=== PATIENT | female | born 1955 | race Caucasian/White ===

== ENCOUNTER → 2021-06-26 16:20 | Outpatient (CLI) | payer MEDICARE, SELFPAY ==
--- NOTE | ~2021-06-26 | MM_ITS ---
EXAMINATION: MM screening haley BI w duncan HISTORY: Screening TECHNIQUE: Craniocaudal and mediolateral oblique 3-D tomosynthesis images were obtained and synthetic 2-D images were generated. CAD analysis was submitted and interpreted. COMPARISON: No prior mammogram is available for comparison at this institution. BREAST PARENCHYMAL COMPOSITION: There are scattered areas of fibroglandular density. FINDINGS: There is no evidence of suspicious mass, calcification, or architectural distortion to sugg est malignancy in either breast. There has been no suspicious interval change. IMPRESSION: 1. No mammographic evidence of malignancy. 2. Recommend routine screening mammography in one year. BI-RADS Category 1: Negative Reviewed, dictated and finalized at location A.
== END ==
PROVIDERS: PCP Nurse Practitioner Family; Visit Provider Nurse Practitioner Family
DX: Z12.31 Encounter for screening mammogram for malignant neoplasm of breast (principal)
CPT/HCPCS: 77063; 77067

== ENCOUNTER → 2022-10-31 10:04 | Outpatient (CLI) | payer MEDICARE, SELFPAY ==
--- NOTE | ~2022-10-31 | MM_ITS ---
EXAMINATION: MM screening haley BI w duncan HISTORY: Screening TECHNIQUE: Craniocaudal and mediolateral oblique 3-D tomosynthesis images were obtained and synthetic 2-D images were generated. CAD analysis was submitted and interpreted. COMPARISON: 06/26/2021 BREAST PARENCHYMAL COMPOSITION: There are scattered areas of fibroglandular density. FINDINGS: There is no evidence of suspicious mass, calcification, or architectural distortion to sugg est malignancy in either breast. There has been no suspicious interval change. IMPRESSION: 1. No mammographic evidence of malignancy. 2. Recommend routine screening mammography in one year. BI-RADS Category 1: Negative Reviewed, dictated and finalized at location A.
== END ==
DX: Z12.31 Encounter for screening mammogram for malignant neoplasm of breast (principal)
CPT/HCPCS: 77063; 77067

== ENCOUNTER → 2023-01-20 14:48 | Outpatient (CLI) | payer MEDICARE, SELFPAY ==
--- NOTE | ~2023-01-20 | DEXA_ITS ---
Bone Density Report Name: ANDREA ANDREWS Age: 67 Sex: Female Ethnicity: White Date of : 1955 Indication: postmenopausal; screening for osteoporosis; hysterectomy; Referring Provider: DIANE, XI Brannon Study: Bone densitometry was performed. Exam Date: January 20, 2023 Accession number: [id number] Bone Density: Region BMD T-score Z-score Classification AP Spine (L1-L4) 0.785 -2.4 -0.3 Osteopenia Femoral Neck (Left) 0.721 -1.2 0.6 Osteopenia Total Hip (Left) 0.864 -0.6 0.8 Normal Femoral Neck (Right) 0.681 -1.5 0.3 Osteopenia Total Hip (Right) 0.819 -1.0 0.5 Normal Total Hip Mean 0.842 -0.8 0.7 Normal World Health Organization criteria for BMD impression classify patients as: Normal (T-score at or above -1.0), Osteopenia (T-score between -1.0 and -2.5), or Osteoporosis (T-score at or below -2.5). 10-year Fracture Risk(1): Major Osteoporotic Fracture 9.0% Hip Fracture 1.4% Reported Risk Factors: [place] (), Neck BMD=0.681, BMI=21.4 (1) FRAX(R) Version 3.08. Fracture probability calculated for an untreated patient. Fracture probability may be lower if the patient has received treatment. Clinical Information Provided by Patient: Has used the following medications: Calcium Has the following medical conditions: Hysterectomy Patient maximum height was 66 Menopause Age: 26 No regular weight bearing exercise Drinks caffeinated beverages Onset of menses at age 8 Number of children 3 Impression: The patient has low bone mass, based on the Total Spine T-score. The patient has an estimated ten-year risk of hip fracture of 1.4% and an estimated ten-year risk of major fracture of 9%, based on the WHO FRAX algorithm. Discussion: BONE DENSITY IS LOW AT ONE OR MORE SKELETAL SITES. This patient's lowest T-score is low at one or more skeletal sites. It meets the World Health Organization's (WHO) criteria for ?low bone mass? (T-score between -1.0 and -2.5). The patient's 10-year risk of fracture as calculated by FRAX is less than the threshold where pharmacological therapy is recommended by the National Osteoporosis Foundation (NOF). However, all treatment decisions require clinical judgment and consideration of individual patient factors, including patient preferences, comorbidities, previous drug use, risk factors not captured in the FRAX model (e.g., frailty, falls, vitamin D deficiency, increased bone turnover, interval significant decline in bone density) and possible under or overestimation of fracture risk by FRAX. The patient should follow a healthful lifestyle (good nutrition with adequate calcium and vitamin D, and appropriate weight-bearing exercise). Follow-Up: Consider repeating this study in 2 to 3 years to reassess this patient's status, or sooner if there is some new clinica
== END ==
PROVIDERS: PCP Family Medicine Sports Medicine; Visit Provider Family Medicine Sports Medicine
DX: M81.0 Age-related osteoporosis without current pathological fracture (principal); M85.88 Other specified disorders of bone density and structure, other site; M85.852 Other specified disorders of bone density and structure, left thigh; M85.851 Other specified disorders of bone density and structure, right thigh
CPT/HCPCS: 77080

== ENCOUNTER 2023-12-22 13:28 | Outpatient (CLI) | payer MEDICARE, SELFPAY ==
--- NOTE | ~2023-12-22 | MM_ITS ---
EXAMINATION: MM screening haley BI w duncan HISTORY: Screening TECHNIQUE: Craniocaudal and mediolateral oblique 3-D tomosynthesis images were obtained and synthetic 2-D images were generated. CAD analysis was submitted and interpreted. COMPARISON: Comparison to multiple prior studies sequentially, with oldest reviewed study dated 09/2021. BREAST PARENCHYMAL COMPOSITION: Not dense: There are scattered areas of fibroglandular density. FINDINGS: There is developing asymmetry posterior to the nipple on the MLO view. The right breast is stable without evidence for malignancy. IMPRESSION: 1. Developing left breast asymmetry. 2. Additional mammographic views and possible breast ultrasound are recommended. BI-RADS Category 0: Incomplete: Needs additional imaging evaluation. Reviewed, dictated and finalized at location B. IMPRESSION: 1. Developing left breast asymmetry. 2. Additional mammographic views and possible breast ultrasound are recommended . BI-RADS Category 0: Incomplete: Needs additional imaging evaluation.
== END 2023-12-22 13:29 | disposition home or self-care (01) ==
LOC: MICIMG 13:28
PROVIDERS: PCP Family Medicine Sports Medicine; Visit Provider Family Medicine Sports Medicine
DX: Z12.31 Encounter for screening mammogram for malignant neoplasm of breast (principal); R92.8 Other abnormal and inconclusive findings on diagnostic imaging of breast
CPT/HCPCS: 77063; 77067

== ENCOUNTER 2024-01-17 08:21 | Outpatient (CLI) | payer MEDICARE, SELFPAY ==
--- NOTE | ~2024-01-17 | MM_ITS ---
EXAMINATION: MM diagnostic haley LT w duncan HISTORY: Left breast asymmetry TECHNIQUE: Additional 3-D tomosynthesis images of the left breast were performed and synthetic 2-D im ages were generated. CAD analysis was submitted and interpreted. COMPARISON: 12/22/2023 BREAST PARENCHYMAL COMPOSITION:Not Dense. There are scattered areas of fibroglandular density. FINDINGS: The asymmetry effaces with spot compression. No persistent mass lesion or distortion seen. No suspicious microcalcifications. IMPRESSION: No mammographic evidence for malignancy. BI-RADS Category 1: Negative Reviewed, dictated and finalized at location .
== END 2024-01-17 08:22 | disposition home or self-care (01) ==
PROVIDERS: PCP Nurse Practitioner Family; Visit Provider Nurse Practitioner Family
DX: R92.8 Other abnormal and inconclusive findings on diagnostic imaging of breast (principal)
CPT/HCPCS: 77061; 77065; G0279

== ENCOUNTER 2024-12-25 11:07 | Outpatient (CLI) | payer MEDICARE, SELFPAY ==
--- NOTE | ~2024-12-25 | MM_ITS ---
EXAMINATION: MM screening haley BI w duncan HISTORY: Screening TECHNIQUE: Craniocaudal and mediolateral oblique 3-D tomosynthesis images were obtained and synthetic 2-D images were generated. CAD analysis was submitted and interpreted. COMPARISON: Comparison to multiple prior studies sequentially, with oldest reviewed study dated , 06/26/2021 BREAST PARENCHYMAL COMPOSITION: There are scattered areas of fibroglandular density. FINDINGS: There is no evidence of suspicious mass, calcification, or architectural distortion to suggest malignancy in either breast. IMPRESSION: 1. No mammographic evidence of malignancy. 2. Recommend routine screening mammography in one year. BI-RADS Category 1: Negative Reviewed, dictated and finalized at location B.
== END 2024-12-25 11:08 | disposition home or self-care (01) ==
PROVIDERS: PCP Nurse Practitioner Family; Visit Provider Nurse Practitioner Family
DX: Z12.31 Encounter for screening mammogram for malignant neoplasm of breast (principal)
CPT/HCPCS: 77063; 77067

== ENCOUNTER 2025-03-19 07:56 | Outpatient (CLI) | payer MEDICARE, SELFPAY ==
--- NOTE | ~2025-03-19 | DEXA_ITS ---
Bone Density Report Name: ANDREA ANDREWS Age: 69 Sex: Female Ethnicity: White Date of : 1955 Indication: osteopenia; hysterectomy; Referring Provider: DONTE, KOBE Patterson Study: Bone densitometry was performed. Exam Date: March 19, 2025 Accession number: [id number] Bone Density: Region BMD T-score Z-score Classification AP Spine(L1-L4) 0.758 -2.6 -0.4 Osteoporosis Femoral Neck (Left) 0.683 -1.5 0.4 Osteopenia Total Hip (Left) 0.802 -1.1 0.5 Osteopenia Femoral Neck (Right) 0.668 -1.6 0.3 Osteopenia Total Hip (Right) 0.800 -1.2 0.4 Osteopenia Total Hip Mean 0.801 -1.2 0.5 Osteopenia World Health Organization criteria for BMD impression classify patients as: Normal (T-score at or above -1.0), Osteopenia (T-score between -1.0 and -2.5), or Osteoporosis (T-score at or below -2.5). 10-year Fracture Risk: FRAX not reported because: Some T-score for Spine Total or Hip Total or Femoral Neck at or below -2.5 Previous Exams: Region Exam Age BMD T-score BMD Change BMD Change Date g/cm2 vs Baseline vs Previous AP Spine (L1-L4) 03/19/2025 69 0.758 -2.6 -0.028 (-3.5%) -0.028 (-3.5%) 01/20/2023 67 0.785 -2.4 Total Hip(Left) 03/19/2025 69 0.802 -1.1 -0.062 (-7.1%) -0.062 (-7.1%) 01/20/2023 67 0.864 -0.6 Total Hip(Right) 03/19/2025 69 0.800 -1.2 -0.019 (-2.4%) -0.019 (-2.4%) 01/20/2023 67 0.819 -1.0 *Denotes significance at 95% confidence level, LSC for AP Spine = 0.022 g/cm2, LSC for Total Hip = 0.027 g/cm2 Clinical Information Provided by Patient: Has used the following medications: Fosamax (i.e. alendronate), Prolia (i.e. denosumab), Vitamin D, Calcium Has the following medical conditions: Hysterectomy Patient maximum height was 66.0 Menopause Age: 26 Drinks caffeinated beverages Onset of menses at age 8 Number of children 3 Impression: The patient has osteoporosis, based on the Total Spine T-score. The BMD for the AP Spine (L1-L4) decreased, changing by -3.5% since the last DXA exam. The BMD for the Total Hip(Left) decreased, changing by -7.1% since the last DXA exam. Discussion: INCREASED RISK OF FRACTURE. BONE DENSITY IS UNDESIRABLY LOW AT ONE OR MORE SKELETAL SITES, CONSISTENT WITH POSTMENOPAUSAL OSTEOPOROSIS. This patient's lowest T-score meets the World Health Organization's (WHO) criteria for osteoporosis at one or more sites (T-score -2.5 or below). In untreated patients, the risk of osteoporotic fracture increases approximately two-fold for each 1.0 SD decrease in T-score. Low bone density is not the only risk factor for fracture; also consider factors such as patient's age, frailty or poor health, risk of falling, risk of injury, previous osteoporotic fracture, family history of osteoporosis, cigarette smoking, low body weight, etc. Not everyone with low bone mineral density has osteoporosis; osteomalacia and other metabolic bone disorders should also be considered. Patients who have osteoporosis should be evaluated for specific diseases and conditions (secondary causes) that may cause or contribute to bone loss. The [place] [employer]ocrin[employer] (AACE) and National Osteoporosis Foundation (NOF) recommend pharmacologic intervention for all postmenopausal women whose T-score is in this range. The patient should follow a healthful lifestyle (good nutrition with adequate calcium and vitamin D, and appropriate weight-bearing exercise). Follow-Up: Consider a repeat BMD and Vertebral Fracture Assessment (VFA) exam in 2 years or sooner if medically necessary, to reassess this patient's status. Reported by: CHERI on 03/19/2025 8:52:00 AM. Reviewed, dictated and finalized at location A.
--- OUTSIDE RECORDS SUMMARY | 2025-03-19 08:09 | XMS_ITS | Encounter Summary ---
Author Organization [facility] Healthcare Address [address] [place] [address] Care Team Providers Care Laboratory Chemical Assistant Name Role Phone Shanita Alejandra NP Primary Care Provider [phone] Reason for Visit * Reason Onset Date Comments Medical Question/Miscellaneous 03/08/2025 Encounter Details Date Type Department Care Team (Late st Contact Info) Description 03/08/2025 Telephone [facility] Primary Care at [address] [address] Shanita Alejandra REGISTERED RESPIRATORY TECHNICIAN [address] [place] [address] Medical Question/Miscellaneous Social History Tobacco Use Types Packs/Day Years Used Date Smoking Tobacco: Never Smokeless Tobacco: Never AUDIT-C Answer Date Recorded Q1: How often do you have a drink containing alc ohol? 2-4 times a month 09/02/2021 Q2: How many drinks containi ng alcohol do you have on a typical day when you are drinking? 1 or 2 09/02/2021 Q3: How often do you have si x or more drinks on one occasion? 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 AC reviewed the referral and provided Amilcar with (Z13.820,Z78.0) codes. Does message need to be routed? No EACH WORKER documented in this encounter Plan of Treatment Not on file documented as of this encounter Visit Diagnoses Not on filedocumented in this encounter Care Teams Laboratory Chemical Assistant Relationship Specialty Start Date End Date Shanita Alejandra NP [address] [place] [address] PCP - General Family Medicine 04/24/24 documented as of this encounter
--- OUTSIDE RECORDS SUMMARY | 2025-03-19 08:09 | XMS_ITS | Encounter Summary ---
Author Organization [facility] Healthcare Address [address] [place] [address] Care Team Providers Care Procurement Professional Name Role Phone Shanita Alejandra NP Primary Care Provider Encounter Details Date Type Department Care Team (Late st Contact Info) Description 02/23/2025 Results Follow-Up [facility] Medical Group Orthopedic and Sports Medicine [facility] [place] [address] Caren Briggs PA [address] [place] [address] [address] MRI Knee Right WO Contrast Social History Tobacco Use Types Packs/Day Years [...] on file 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 Mullins for a consult- She is scheduled to follow-up with you 03/20/25, Is it okay for me to cancel this appointment? ATAL SPECIALIST documented in this encounter Plan of Treatment Not on file documented as of this encounter Visit Diagnoses Not on filedocumented in this encounter Care Teams Procurement Professional Relationship Specialty Start Date End Date Shanita Alejandra NP [address] [place] [address] PCP - General Family Medicine 04/24/24 documented as of this encounter
--- OUTSIDE RECORDS SUMMARY | 2025-03-19 08:10 | XMS_ITS | Patient Health Record ---
Author Organization [facility] Address [address] [place] [address] Care Team Providers Care Casing Material Weigher Name Role Phone Arjun HUDSON, Rory Primary Care Provider Unavailable Charles Loredo Unavailable [phone] Allergies Allergen (clinical drug ingredient) Drug/Non Drug Allergy documented on EMR Reaction Allergy Type Onset Date Status codeine Codeine Allergy Unknown Drug Allergy A ctive Reason For Referral No Information Medications Medication SIG (Take, Route, Frequency, Duration) Notes Start Date End Date Status Citalopram Hydrobromide 10 MG Tablet 1 tablet Orally Once a day Active Multivitamin *Pick strength-form from Medispan for eRX* Active Fish Oil 1000 MG Capsule 1 capsule Orally Twice a day Not-Taking Atorvastatin Calcium 40 MG Tablet 1 tablet Orally Once a day Active Reclast *Pick strength-form from Medispan for eRX* Active Tylenol *Pick strength-form from Medispan for eRX* Not-Taking Social History Social History Additional Details Category Social Info Options Details Migrated Social History Tobacco Use: (Tobacco Use/Smoking):Smoking Status:: nonsmoker ; Problems Problem Type SNOMED Code ICD Code Onset Dates Problem Status W/U Status Risk Notes Problem Spinal enthesopathy (93768428) Spinal enthesopathy, 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) Active confirmed Problem Cervicalgia (84934457) Cervicalgia (M54.2) Active confirmed Problem Cervical spondylosis with myelopathy (M47.12) Active confirmed Problem Internal impingement of left shoulder (7743470755676582 ) Internal impingement of left shoulder (M75.42) Active confirmed Problem Localized, primary osteoarthritis of the hand (580035234) Primary osteoarthritis of left hand (M19.042) Active confirmed Problem Tendonitis of left shoulder (4988962011609900 ) Left shoulder tendonitis (M75.82) Active confirmed Problem Acquired deformity of neck (50594760) 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) Active confirmed Plan Of Treatment No Information Insurance Providers Payer Name Payer Address Payer Phone Subscriber Number Group Number Insured Name Patient Relationship to Insured Coverage Start Date Coverage End Date [employer] PART B [address] [place] [address] [id number] Antoinette Lawrence Self - patient is the insured [facility] [address] [address] [place] [address] [id number] Antoinette Lawrence Self - patient is the insured Medical (General) History Medical History History ICD Code High blood pressure/High cholesterol Osteoporosis Surgical History Surgery Date(Month/Year) Bilateral froozen shoulder Torn labrum Hysterectomy 1980
--- OUTSIDE RECORDS SUMMARY | 2025-03-19 08:10 | XMS_ITS | Clinical Summary ---
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 Gender Identity Not on file Sexual Orientation Not on file Last Filed Vital Signs Vital Sign Reading Time Taken Comments Blood Pressure 100/80 11/06/2009 5:55 PM CDT Pulse 60 11/06/2009 5:55 PM CDT Temperature - - Respiratory Rate - - Oxygen Saturation - - Inhaled Oxygen Concentration - - Weight 62.4 kg (137 lb 8 oz) 11/06/2009 5:55 PM CDT Height - - Body Mass Index - - Plan of Treatment Health Maintenance Due Date Last Done Comments Colorectal Cancer Screening Colonoscopy (10 Years) 1955 Hepatitis C 1971 DTaP, Tdap and Td Vaccines ( 1 - Tdap) 1972 Mammogram Screening 1993 Pneumococcal Vaccine: 50+ Ye ars (1 of 1 - PCV) 2003 Zoster Vaccines (1 of 2) 2003 Dexa Scan (General) 2018 COVID-19 Vaccine ( - 2024-2 6 season) 2024 Influenza Adult (#1) 2024 RSV Immunization or 60+ Years (1 - 1-dose 75+ series) 2028 Hepatitis A Vaccines Aged Out No long er eligible based on patient's age to complete this topic Meningococcal B Vaccine Aged Out No l onger eligible based on patient's age to complete this topic Meningococcal Vaccine Aged Out No jann prakash eligible based on patient's age to complete this topic RSV Immunizations Under 20 Months Aged Out No longer eligible based on patient's age to complete this topic
--- OUTSIDE RECORDS SUMMARY | 2025-03-19 08:10 | XMS_ITS | Clinical Summary ---
[facility] Address [address] [place] [address] Phone Care Team Providers Care Grief Counselor Name Role Phone Charles Hicks MD Primary Care Provider Allergies Active Allergy Reactions Criticality Noted Date Comments Codeine Nausea and Vomiting Low 05/11/2011 Ezetimibe Weakness Low 03/08/2013 Medications acyclovir (ZOVIRAX) 200 mg Oral capsule Take 200 mg by mouth 5 times daily. Active ascorbic acid (VITAMIN C) 500 mg Oral tablet Take 500 mg by mouth daily. Active Fish Oil-DHA-EPA (FISH OIL) 1,200-144-216 mg Oral Cap Take by mouth. Active MULTIVIT WITH CALCIUM,IRON,DE N (ONE-A-DAY WOMENS FORMULA ORAL) Take by mouth. Active CALCIUM CARB/VIT D3/MINERALS (CALCIUM CARBONATE-VIT D3-MIN) 1,200 mgcalcium -1,000 unit Oral Chew Take by mouth. Active ALPRAZolam (XANAX) 0.5 mg Oral tablet Take 0.5 mg by mouth nightly as needed. Active ibuprofen (MOTRIN) 800 mg Oral tablet Take 1 Tab by mouth every 6 hours as needed for Pain, Mild. 30 Tab 0 12/04/2012 Active cyclobenzaprine (FLEXERIL) 5 mg Oral Tab Take 1 Tab by mouth 3 times daily as needed for Pain. 20 Tab 0 12/04/2012 Active HYDROcodone-edie taminophen (VICODIN) 5-500 mg Oral tablet Take 1 Tab by mouth every 4 hours as needed for Pain, Moderate. 10 Tab 0 12/04/2012 Active pravastatin (PRAVACHOL) 20 mg tablet Take 1 Tab by mouth daily at bedtime. 90 Tab 3 06/14/2013 Active citalopram (CELEXA) 10 mg tablet Take 1 Tab by mouth daily. 90 Tab 3 08/21/2013 Active hydrochlorothia zide (MICROZIDE) 12.5 mg capsule Take 1 Cap by mouth daily. 90 Cap 1 11/15/2013 Active Active Problems Problem Noted Date Diagnosed Date Osteoporosis 06/03/2011 Immunizations Immunization Administration Dates Next Due (ADACEL/BOOSTRIX)(10 YR UP) TDAP VACCINE, 0.5ML, IM 07/12/2012 Influenza Seasonal Unspecified Formulation IM Family History Medical History Relation Name Comments Cancer Father Diabetes Father Heart Disease Father pacer Heart Disease Maternal Grandmother High Cholesterol Mother Hypertension Mother Breast Cancer Paternal Aunt Colon Cancer Neg Hx Ovarian Cancer Neg Hx Stroke Neg Hx Relation Name Status Comments Father Maternal Grandmother Mother Paternal Aunt Social History Tobacco Use Types Packs/Day Years Used Date Smoking Tobacco: Never Smokeless Tobacco: Never Alcohol Use Standard Drinks/Week Comments Yes 1.7 (1 standard drink = 0.6 oz p ure alcohol) rare Comments No Sex and Gender Information Value Date Recorded Sex Assigned at Not on file 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 Gender Identity Not on file Sexual Orientation Not on file Occupation Industry Job Start Date Job End Date Not on file Not on file Not on file Not on file Not on file Not on file Not on file Not on file Last Filed Vital Signs Vital Sign Reading Time Taken Comments Blood Pressure 90/64 12/05/2012 10:01 AM CDT Pulse 64 12/05/2012 10:01 AM CDT Temperature 35.4 C (95.7 F) 12/05/2012 10:01 AM CDT Respiratory Rate 18 12/05/2012 10:01 AM CDT Oxygen Saturation 100% 12/04/2012 9:39 AM CDT Inhaled Oxygen Concentration - - Weight 59 kg (130 lb) 12/05/2012 10:01 AM CDT Height 167.6 cm (5' 6) 12/05/2012 10:01 AM CDT Body Mass Index 20.98 12/05/2012 10:01 AM CDT Plan of Treatment Health Maintenance Due Date Last Done Comments COLORECTAL SCREENING 1998 Colorectal Cancer Screening 1998 FIT-DNA Q 3 years 1998 FIT/FOBT Q 1 year 1998 Flex Sig/CT Colonography Q 5 years 1998 PNEUMOCOCCAL VACCINE 50+ YEA RS (1 of 1 - PCV) 2003 ZOSTER VACCINE (1 of 2) 2003 BREAST CANCER SCREENING 07/20/2013 07/20/2012 OSTEOPOROSIS SCREENING 2018 08/24/2011 DTAP/TDAP/TD VACCINES (2 - T d or Tdap) 07/12/2022 07/12/2012 Preventative Visit- Commercial 03/22/2024 0 10/18/2012, 07/12/2012, 06/01/2011 INFLUENZA VACCINE (#1) 2024 01/23/2012 RSV VACCINE (60+ or ) (1 - 1-dose 75+ series) 2028 Procedures Procedure Name Priority Date/Time Associated Diagnosis Comments MAMMO SCREEN BILAT W OR WO CAD Routine 07/20/2012 2:21 PM CDT History of mammogram XR DEXA BONE DENSITY AXIAL 1 OR MORE SITES Routine 08/24/2011 10:25 AM CDT Osteoporosis from Last 3 Months or Most Recently Relevant to Health Maintenance Results * MAMMO DIGITAL SCREEN BILAT (07/20/2012 2:21 PM CDT) Anatomical Region Laterality Modality Breast Bilateral Mammography 07/20/2012 2:07 PM CDT Impressions 07/25/2012 8:39 AM CDT IMPRESSION: Negative screening mammogram Recommend routine followup OVERALL ASSESSMENT: BI-RADS category 1 - Negative Dictated from [facility] Narrative 07/25/2012 8:39 AM CDT BILATERAL SCREENING DIGITAL MAMMOGRAMS WITH COMPUTER ASSISTED DIAGNOSIS 07/20/12 HISTORY: Annual screening study. FINDINGS: Comparison films are not available. CAD was utilized. The breast parenchyma has scattered fibroglandular densities. No dominant masses, suspicious calcifications or areas of parenchymal asymmetry or distortion are identified. Procedure Note Yamileth Hinojosa MD - 07/25/2012 BILATERAL SCREENING DIGITAL MAMMOGRAMS WITH COMPUTER ASSISTED DIAGNOSIS 07/20/12 HISTORY: Annual screening study. FINDINGS: Comparison films are not available. CAD was utilized. The breast parenchyma has scattered fibroglandular densities. No dominant masses, suspicious calcifications or areas of parenchymal asymmetry or distortion are identified. IMPRESSION IMPRESSION: Negative screening mammogram Recommend routine followup OVERALL ASSESSMENT: BI-RADS category 1 - Negative Dictated from [facility] us Charles Hicks MD MAMMO ORDERABLES Final Result * XR DEXA BONE DENSITY AXIAL 1 OR MORE SITES (08/24/2011 10:25 AM CDT) Anatomical Region Laterality Modality Digital Radiogra phy 08/24/2011 10:2 1 AM CDT Narrative 08/24/2011 10:49 AM CDT XR DEXA BONE DENSITY AXIAL 1 OR MORE SITES HISTORY: 56 yo F with postmenopausal symptoms on calcium supplementation and with known bone mineral loss needing evaluation for osteoporosis. PROCEDURE: Using a [employer] iDXA dual energy x-ray absorptiometry system, the patient's bone mineral density was measured over the lumbar spine and femurs. Comparison was made to age and sex matched normal values. FINDINGS: Lumbar Spine (L1-L4) Bone Mineral Density = 1.007 gm/cm2 Compared to young adult (T-score), difference of -1.4 Standard Deviations. The patient's spine BMD is osteopenic when compared to that of a young adult. Left Femoral Neck Bone Mineral Density = 0.968 gm/cm2 Compared to young adult (T-score), difference of -0.1 Standard Deviations. The patient's left femoral neck BMD is normal when compared to that of a young adult. Right Femoral Neck Bone Mineral Density = 0.920 gm/cm2 Compared to young adult (T-score), difference of -0.5 Standard Deviations. The patient's right femoral neck BMD is normal when compared to that of a young adult. No prior DEXA studies are available for comparison. Procedure Note Oh Love DO - 08/24/2011 XR DEXA BONE DENSITY AXIAL 1 OR MORE SITES HISTORY: 56 yo F with postmenopausal symptoms on calcium supplementation and with known bone mineral loss needing evaluation for osteoporosis. PROCEDURE: Using a [employer] iDXA dual energy x-ray absorptiometry system, the patient's bone mineral density was measured over the lumbar spine and femurs. Comparison was made to age and sex matched normal values. FINDINGS: Lumbar Spine (L1-L4) Bone Mineral Density = 1.007 gm/cm2 Compared to young adult (T-score), difference of -1.4 Standard Deviations. The patient's spine BMD is osteopenic when compared to that of a young adult. Left Femoral Neck Bone Mineral Density = 0.968 gm/cm2 Compared to young adult (T-score), difference of -0.1 Standard Deviations. The patient's left femoral neck BMD is normal when compared to that of a young adult. Right Femoral Neck Bone Mineral Density = 0.920 gm/cm2 Compared to young adult (T-score), difference of -0.5 Standard Deviations. The patient's right femoral neck BMD is normal when compared to that of a young adult. No prior DEXA studies are available for comparison. Charles Hicks MD DIAGNOSTIC IMAGING ORDERABLES Final Result from Last 3 Months or Most Recently Relevant to Health Maintenance Insurance [facility] O Care Teams Grief Counselor Relationship Specialty Start Date End Date Charles Hicks MD PCP - General Internal Medicine 05/04/11
--- OUTSIDE RECORDS SUMMARY | 2025-03-19 08:10 | XMS_ITS | Patient Health Record ---
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 Name Role Phone Maurizio Judge Unavailable [phone] Maurizio Judge MD Unavailable Unavailable Allergies Allergen (clinical drug ingredient) Drug/Non Drug Allergy documented on EMR Reaction Allergy Type Onset Date Status codeine Codeine (uncoded) Unknown Allergy Ac tive Retinoid (substance) Retinol (uncoded) Unknown Allergy Active Reason For Referral No Information Medications Medication SIG (Take, Route, Fr equency, Duration) Notes Start Date End Date Status Vitamin D Active Multivitamin Active Citalopram Hydrobromide Active Calcium Active Prolia Active Atorvastatin Calcium Active Social History Tobacco Use: Social History Observation Description Date Details (start date - stop date) Never Smoker NA - NA Social History Alcohol Social Info Question Answer Notes Drugs Have you used drugs other than those for medical reasons in the past 12 months? No Alcohol Screen Did you have a drink containing alcohol in the past year? Yes How often did you have a drink containing alcohol in the past year? 2 to 4 times a month (2 points) How many drinks did you have on a typical day when you were drinking in the past year? 1 or 2 drinks (0 point) How often did you have 6 or more drinks on one occasion in the past year? Never (0 point) Points 2 Interpretation Negative Alcohol Use Frequency of alcohol use over the past year: 2-4 drinks per month Tobacco Use: Social Info Question Answer Notes Smoking Exclusion - Screenin g not Performed Reason: No reason specified Patient not counseled: Patient not eligible Smoking Are you a: never smoker Additional Findings: Tobacco Non-User Aggressive non-smoker Problems Problem Type SNOMED Code ICD Code Onset Dates Problem Status W/U Status Risk Notes Problem Facial aging (R23.8) Active confirmed Plan Of Treatment No Information Medical (General) History Medical History History ICD Code High cholesterol Healthy Surgical History Surgery Date(Month/Year) [place] teeth extraction Total hysterectomy 1980 Hospitalization History Reason Date(Month/Year) See above
--- OUTSIDE RECORDS SUMMARY | 2025-03-19 08:10 | XMS_ITS | Clinical Summary ---
Author Organization [facility] [place] Address [address] [place] [phone] Care Team Providers Care Real Estate Account Executive Name Role Phone Shanita Alejandra NP Primary Care Provider [phone] Allergies Active Allergy Reactions Criticality Noted Date Comments Codeine Nausea And Vomiting Low 05/11/2011 Ezetimibe Muscle pain Medium 03/08/2013 Retinol Rash Medium 05/22/2019 Medications Ca-D3-mag dz-sxka-wmy-maggie -bor 600 mg calcium- 20 mcg-50 mg tablet Take 600 mg by mouth daily Active multivitamin capsule Take 1 capsule by mouth daily Active vit D3-vit C-rhszmhgwg-jmfb [id number] tost-fuo-zy-mg tablet Take 50 mcg by mouth daily Active bimatoprost (LATISSE) 0.03 % ophthalmic solution APPLY 1 DROP TO UPPER EYELID MARGIN AT BEDTIME 09/01/2021 Active valACYclovir (VALTREX) 500 mg tablet TAKE TABLET BY MOUTH TWICE DAILY FOR 7 DAYS 11/18/2021 Active citalopram (CeleXA) 20 mg tabletIndication s:Anxiety Take 1 tablet (20 mg total) by mouth daily 90 tablet 1 09/28/2024 Active atorvastatin (LIPITOR) 40 mg tabletIndication s:High cholesterol Take 1 tablet (40 mg total) by mouth daily 90 tablet 3 12/05/2024 Active Hospital, Clinic, or Other Facility Administered Medication Ordered Dose Route Frequency Start Date End Date Status lidocaine (XYLOCAINE) 20 mg/mL (2 %) injection 3 mLIndications:Admi nistration of Local Anesthesia 3 mL One-Time Injection 02/27/2025 02/27/2025 Ended lidocaine (XYLOCAINE) 20 mg/mL (2 %) injection 3 mLIndications:Admi nistration of Local Anesthesia 3 mL One-Time Injection 02/27/2025 02/27/2025 Ended methylPREDNISolone acetate (DEPO-medrol) injection 80 mgIndications:Myrtle pheral tear of medial meniscus of left knee as current injury, initial encounter,Acute medial meniscus tear of right knee, initial encounter,Acute pain of both knees 80 mg intra-artic One-Time Injection 02/27/2025 02/27/2025 Ended methylPREDNISolone acetate (DEPO-medrol) injection 80 mgIndications:Myrtle pheral tear of medial meniscus of left knee as current injury, initial encounter,Acute medial meniscus tear of right knee, initial encounter,Acute pain of both knees 80 mg intra-artic One-Time Injection 02/27/2025 02/27/2025 Ended Active Problems Problem Noted Date Diagnosed Date Family history of colon cancer 10/21/2021 Overview (10/21/2021): Added automatically from request for surgery [id number] Encounter for screening colonoscopy 10/21/2021 Overview (10/21/2021): Added automatically from request for surgery [id number] Pain of right thumb 06/15/2021 Assessment & Plan (06/15/2021 7:51 PM CDT): Examination of the thumb and distal thumb joint shows no deformity or discoloration. The is slightly swollen nail kamron is less than 2 seconds. Sensation is intact proximal joint moves fine without any difficulty distal joint is a little tender with movement no clicking is noted no problems with movement can form of this without any difficulty noted this time will have her use some Aspercreme with lidocaine on this area as directed. Will use ice and alternate heat to the thumb area, 10-15 minute 2 to 3 times a day. Request no repetitive activities with the hand, especially the thumb. Ibuprofen 400 mg p.o. Q 8 hours with food or Tylenol 625 mg p.o. q.4-6 hours with food. Other options to care would to get an x-ray of the joint loading for fracture or arthritis. No other option would be sent to hand specialist for injection into the joint. Vitamin D deficiency 05/11/2021 Assessment & Plan (06/15/2021 7:25 PM CDT): Continue with Vitamin D3 1000IU po daily. Continue with long bone exercises. Get out in the sun light for about 15 minutes or so, for Vit D production. Assessment & Plan (05/11/2021 5:34 PM COMPUTER PUBLISHER): Will check Vit D level. Continue with Vit D supplement. After lab will reassess lab values for levels. Exercise, get 15 min of sun light per day. Eat balanced. Age-related osteoporosis wit hout current pathological fracture 06/03/2011 Overview (09/02/2021): Remotely treated with Reclast and Prolia. Last Prolia prior to 2020 Assessment & Plan (06/15/2021 7:29 PM CDT): Continue with Vitamin D3 po daily Bone Densities every 2 years or more if indicated Exercise for 30 minutes 3 times a week or more. Eat balanced. Adequate fluid. Assessment & Plan (05/11/2021 5:43 PM COMPUTER PUBLISHER): May sure she has a bone scan every 2 years or more or less. States does exercise. Eats balanced. Takes in some dairy. Does take Vit D. Calcium Note talked with her about supplement with all three in one tab. Citracal with D and Mag OTC Will check on last bone density and report. Resolved Problems Problem Noted Date Diagnosed Date Resolved Date Leg cramps 05/11/2021 09/02/2021 Assessment & Plan (06/15/2021 7:36 PM CDT): Note continue to monitor cramping. In legs. Wear support hose when up. Off at night. Make sure she is drinking adequate fluids. Lab work to be done Do stretching exercises at night Benadryl 25mg at night timel. Assessment & Plan (05/11/2021 5:48 PM COMPUTER PUBLISHER): Having some problems with cramping in lower legs and feet. Denies any chest pain or irregular heart beats. No cramps in feet come without incident. Lab CMP, Mag level. Pedal and posterior tibal pulses +2 on 1-4 scale. Cap refill less than 5 seconds. Nhi's sign negative. No major varicose veins noted at this time. Will get lab results. Possible venous doppler if needed. Lipid screening 05/11/2021 09/02/2021 Assessment & Plan (05/11/2021 5:32 PM COMPUTER PUBLISHER): Lab work today Continue with diet and medications Follow low fat diet with eating balanced diet. Include veggies, fruits, fish, chicken , turkey, Less amounts of red meat and pork. Talked about taking Co Enxymes Q 10, Fish oil. [place] oil, Exercising at least 3 days a week for 30 minutes. Cardiovascular exercise. Drinking at least 64 ounces of fluid per day. Encounter for hepatitis C sc reening test for low risk patient 05/11/2021 09/02/2021 Assessment & Plan (06/16/2021 9:38 PM CDT): Will do hep. C screen today. 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 Will do Hep C screening, note low risk, but definitely could have been exposed. Has had no problems with Hep A or Hep B. Fatigue 05/11/2021 09/02/2021 Assessment & Plan (06/15/2021 7:39 PM CDT): Try and get 8 hours of sleep at night. Eat balanced. Push fluids. Take Vit D3 and B12 as stated. Practice good sleep hygiene at night. No stimulants at bedtime. Sleepy time tea at night. Assessment & Plan (05/11/2021 5:52 PM COMPUTER PUBLISHER): Lab work, Look at quality of sleep, see if she is napping in the day time hours. See if she is having problems with restless leg syndrome or other things that can cause her problems with sleep that also could contribute to fatigue. Encounters Date Type Department Care Team Description 03/12/2025 Telephone [facility] Medical [facility] Sports Medicine and Primary Care at [address] [phone] Eunice Randall MA MRi- left knee wo contrast 03/08/2025 Telephone [facility] Primary Care at [address] [phone] Shanita Alejandra NP Medical Question/Miscellanethompson s 02/27/2025 8:00 AM COMPUTER PUBLISHER Office Visit [facility] [address] [place] [phone] Caren Briggs PA Peripheral tear of medial meniscus of left knee as current injury, initial encounter (Primary Dx); Acute medial meniscus tear of right knee, initial encounter; Acute pain of both knees 02/23/2025 Results Follow-Up [facility] [address] [place] [phone] Caren Briggs PA MRI Knee Right WO Contrast 02/20/2025 4:08 PM COMPUTER PUBLISHER - 02/20/2025 11:59 PM COMPUTER PUBLISHER Hospital Encounter [address] [phone] Acute medial meniscus tear of right knee, initial encounter Discharge Disposition: Discharge to home or self care 02/19/2025 Orders Only [facility] [address] [place] [phone] Caren Briggs PA Acute medial meniscus tear of right knee, initial encounter (Primary Dx) 02/19/2025 Telephone [facility] [address] [place] [phone] Demetri Mullins MD 01/11/2025 Telephone [facility] [address] [place] [phone] Caren Briggs PA prior authorization denied 01/04/2025 8:50 AM CDT Ancillary Procedure [facility] Imaging at [address] [phone] Acute pain of right knee 01/04/2025 8:30 AM CDT Office Visit [facility] [address] [place] [phone] Caren Briggs PA Acute medial meniscus tear of right knee, initial encounter (Primary Dx); Patellofemoral syndrome of left knee 12/26/2024 Results Follow-Up [facility] Primary Care at [address] [phone] Shanita Alejandra NP SCREENING MAMMOGRAM BILATERAL W NANETTE from Last 3 Months Immunizations Immunization Administration Dates Next Due Hep A, Adult 09/30/2000,03/24/2000 Hep B Vaccine 09/30/2000,04/28/2000,03/24/2000 Influenza, Quadrivalent, Hig h Dose, Preservative Free, Intrr 01/04/2023,01/16/2022 Influenza, Trivalent, Adjuva nted, Intramuscular 11/02/2023 Influenza, Trivalent, IM (MDV) 01/23/2012 Influenza, Trivalent, Preser vative Free, Intramuscular 01/05/2013 Influenza, Unspecified 11/02/2023,01/03/2021, Moderna SARS-CoV-2 Monovalen t Vaccination (12+ YRS) 07/04/2020,05/27/2020 Moderna Sars-cov-2 Monovalen t Booster Vaccination (12+ YRS) 08/22/2021 RSV Vaccine, Pref, Recombina nt, Subunit, Adjuvanted, PF, IM (Arexvy) 02/03/2023 Td, adsorbed 03/24/2000 Tdap 06/07/2024,07/12/2012 ZOSTER Recombinant 03/10/2023,01/13/2023 Surgical History Surgery Date Site/Laterality Comments TOTAL ABDOMINAL HYSTERECTOMY W/ BILATERAL SALPINGOOPHORECTOMY 03/22/1980 - 03/21/1981 SHOULDER ARTHROSCOPY W/ LABR AL REPAIR Left APPENDECTOMY done at time of hysterectomy LASIK 1998 COLONOSCOPY >5 yrs Medical History Medical History Date Comments Hyperlipidemia Age-related osteoporosis wit hout current pathological fracture Adhesive capsulitis of both shoulders s/p manipulation previously High cholesterol Family History Medical History Relation Name Comments Colon cancer Brother not positive on dx Colon polyps Brother Heart disease Father [place] Leukemia Father [place] hairy cell Hyperlipidemia Mother Josselin Jimenez Breast cancer Other paternal aunt Hyperlipidemia Sister 1 Hyperlipidemia Sister 2 Relation Name Status Comments Brother Alive Father [place] Mother Josselin Jimenez Other paternal aunt Alive Sister 1 Alive Sister 2 Alive Social History Tobacco Use Types Packs/Day Years Used Date Smoking Tobacco: Never Smokeless Tobacco: Never Tobacco Cessation:Counseling Given: Not Answered AUDIT-C Answer Date Recorded Q1: How often [...] on file Legal Sex Female 11:25 AM COMPUTER PUBLISHER Gender Identity Not on file Sexual Orientation Not on file Obstetrics History Para Term AB IAB SAB Ectopic Multiple Livin g Live Births 3 3 3 3 3 Date Outcome GA Total Labor Labor/2nd/3rd Weight Sex Type Anes PTL Xochitl A1 A5 Name Clin 1971 Term 2.92 kg (6 lb 7 oz) F Vag-S pont Living 1974 Term F Vag-S pont Living 1977 Term F Vag-S pont Living Last Filed Vital Signs Vital Sign Reading Time Taken Comments Blood Pressure 122/83 02/27/2025 8:04 AM COMPUTER PUBLISHER Pulse 74 02/27/2025 8:04 AM COMPUTER PUBLISHER Temperature 36 C (96.8 F) 12/05/2024 8:53 AM CDT Respiratory Rate 16 12/05/2024 8:53 AM CDT Oxygen Saturation 98% 12/05/2024 8:53 AM CDT Inhaled Oxygen Concentration - - Weight 59.9 kg (132 lb) 02/27/2025 8:04 AM COMPUTER PUBLISHER Height 167.6 cm (5' 6) 02/27/2025 8:04 AM COMPUTER PUBLISHER Body Mass Index 21.31 02/27/2025 8:04 AM COMPUTER PUBLISHER Plan of Treatment Health Maintenance Due Date Last Done Comments Pneumococcal vaccine 65+ (1 of 1 - PCV) 2003 Well Visit 65+ 01/05/2024 01/04/2023 Influenza Vaccine (#1) 2024 , 11/02/2023, 01/04/2023, Additional history exists Osteoporosis Screening-Bone Density Scan 01/20/2025 01/20/2023, 01/20/2023, 09/30/2020, Additional history exists Depression Screening 04/24/2025 04/24/2024, 01/04/2023, 11/02/2022, Additional history exists Fall Risk Assessment 04/24/2025 04/24/2024, 01/04/2023, 02/16/2022, Additional history exists Covid-19 Vaccine ( season) 2025 12/07/2023, 01/13/2023, 03/11/2022, Additional history exists Postponed from 11/20/2024 (Patient declined, but will receive in the future) Breast Cancer Screening-Mammogram 12/25/2025 12/25/2024, 12/22/2023, 12/22/2023, Additional history exists Colon Cancer Screening-Colonoscopy 02/16/2027 02/16/2022 DTaP/Tdap/Td Vaccine (3 - Td or Tdap) 06/07/2034 06/07/2024, 07/12/2012, 03/24/2000 Hepatitis B Screening Completed 09/30/2000 , 04/28/2000, 03/24/2000 Hepatitis C Screening Completed 05/09/2021 Zoster Vaccine Completed 03/10/2023, 01/13/2023 Procedures Procedure Name Priority Date/Time Associated Diagnosis Comments GA ARTHROCENTESIS ASPIR&/INJ MAJOR JT/BURSA W/O US Routine 02/27/2025 8:00 AM COMPUTER PUBLISHER Peripheral tear of medial meniscus of left knee as current injury, initial encounter Acute medial meniscus tear of right knee, initial encounter Acute pain of both knees MRI KNEE RIGHT WO CONTRAST Schedule Routine, Read Routine (OP Routine) 02/20/2025 5:08 PM COMPUTER PUBLISHER Acute medial meniscus tear of right knee, initial encounter XR PELVIS 1 OR 2 VIEWS Schedule Routine, Read Routine (OP Routine) 01/04/2025 8:51 AM CDT Acute pain of right knee SCREENING MAMMOGRAM BILATERAL W NANETTE Schedule Routine, Read Routine (OP Routine) 12/25/2024 12:14 PM CDT Encounter for screening mammogram for malignant neoplasm of breast HM DEXA SCAN Routine 01/20/2023 2:43 PM CDT COLONOSCOPY 02/16/2022 9:25 AM COMPUTER PUBLISHER HEPATITIS C ANTIBODY Routine 05/09/2021 10:34 AM COMPUTER PUBLISHER Encounter for hepatitis C screening test for low risk patient from Last 3 Months or Most Recently Relevant to Health Maintenance Results * GA ARTHROCENTESIS ASPIR&/INJ MAJOR JT/BURSA W/O US (02/27/2025 8:00 AM COMPUTER PUBLISHER) Narrative Caren Briggs PA - 02/27/2025 8:00 AM COMPUTER PUBLISHER Caren Briggs PA 03/09/2025 7:43 AM Large Joint (Hip, Knee, Shoulder) Injection: bilateral knee Performed by: Caren Briggs PA Authorized by: Caren Briggs PA Large Joint Injection/Aspiration: Consent Given by: Patient Site marked: the procedure site was marked Timeout: prior to procedure the correct patient, procedure, and site was verified Verbal consent obtained: Yes Supporting Documentation: Indications: Pain Procedure Details: Location: Knee Site: Bilateral knee Prep: patient was prepped and draped in usual sterile fashion Needle Size: 22 G Approach: Anterolateral Ultrasound guided: No Fluroscopic guidance: No Medications Right Large Joint Injection: 80 mg methylPREDNISolone acetate 80 mg/mL; 3 mL lidocaine 20 mg/mL (2 %) Medications Left Large Joint Injection: 80 mg methylPREDNISolone acetate 80 mg/mL; 3 mL lidocaine 20 mg/mL (2 %) Patient tolerance: Patient tolerated the procedure well with no immediate complications us Caren BRIAN IN CLINIC/BEDSIDE ORDER GEOVANNA Final Result * MRI Knee Right WO Contrast (02/20/2025 5:08 PM COMPUTER PUBLISHER) Anatomical Region Laterality Modality Lower Extremities Right Magnetic Reson ance 02/21/2025 6:40 AM COMPUTER PUBLISHER Impressions 02/21/2025 6:40 AM COMPUTER PUBLISHER 1. Complex oblique undersurface tearing of the lateral meniscal body extending to the anterior and posterior junctions. Small displaced undersurface flap fragment of the meniscal body. 2. Degenerative innermargin radial tear of the right medial meniscus body posterior horn junction. 3. Mild to moderate lateral predominant tricompartmental right knee chondrosis. 4. Small knee effusion. Electronically signed by: Thomas Brewer M.D. Narrative 02/21/2025 6:40 AM COMPUTER PUBLISHER EXAMINATION: 1. MRI right knee without contrast HISTORY: Right knee pain for 4 months COMPARISON: Radiographs 12/05/2024 FINDINGS: Multiplanar multisequence MR examination of the right knee was performed. In the medial compartment, there is a degenerative innermargin radial tear of the body posterior horn junction. Mild chondrosis. In the lateral compartment, there is complex oblique undersurface tearing of the meniscal body extending to the anterior horn and posterior horn junction. Small displaced undersurface flap fragment involving the body. Deep partial and full-thickness cartilage loss of the tibial plateau. In the patellofemoral compartment, there is partial thickness cartilage loss of the lateral patellar facet extending to the median ridge. Matching chondrosis of the lateral trochlea. The cruciate and collateral ligaments are intact. The extensor mechanism is normal. The popliteus tendon is normal. Small effusion. No loose bodies are identified. Mild edema involving the superolateral aspect of Hoffa's fat pad is present. Procedure Note Thomas Brewer MD - 02/21/2025 EXAMINATION: 1. MRI right knee without contrast HISTORY: Right knee pain for 4 months COMPARISON: Radiographs 12/05/2024 FINDINGS: Multiplanar multisequence MR examination of the right knee was performed. In the medial compartment, there is a degenerative innermargin radial tear of the body posterior horn junction. Mild chondrosis. In the lateral compartment, there is complex oblique undersurface tearing of the meniscal body extending to the anterior horn and posterior horn junction. Small displaced undersurface flap fragment involving the body. Deep partial and full-thickness cartilage loss of the tibial plateau. In the patellofemoral compartment, there is partial thickness cartilage loss of the lateral patellar facet extending to the median ridge. Matching chondrosis of the lateral trochlea. The cruciate and collateral ligaments are intact. The extensor mechanism is normal. The popliteus tendon is normal. Small effusion. No loose bodies are identified. Mild edema involving the superolateral aspect of Hoffa's fat pad is present. IMPRESSION: 1. Complex oblique undersurface tearing of the lateral meniscal body extending to the anterior and posterior junctions. Small displaced undersurface flap fragment of the meniscal body. 2. Degenerative innermargin radial tear of the right medial meniscus body posterior horn junction. 3. Mild to moderate lateral predominant tricompartmental right knee chondrosis. 4. Small knee effusion. Electronically signed by: Thomas Brewer M.D. Caren BRIAN IMG MRI PROCEDURES Robyn l Result * XR Pelvis 1 or 2 Views (01/04/2025 8:51 AM CDT) Anatomical Region Laterality Modality Body, Pelvis N/A Digital Radiogra phy Narrative 01/04/2025 9:14 AM CDT Radiographs of the pelvis is reviewed interpreted. No acute fractures or destructive osseous lesions. Mild degenerative changes of bilateral femoral acetabular joints, without gross joint space narrowing Caren BRIAN IMG XR PROCEDURES Final Result * SCREENING MAMMOGRAM BILATERAL W NANETTE (12/25/2024 12:14 PM CDT) Anatomical Region Laterality Modality Breast Bilateral Mammography Shanita Alejandra NP IMG MAMMO PROCEDURES Final Resul t * HM DEXA SCAN (01/20/2023 2:43 PM CDT) Historical Provider HEALTH MAINTENANCE Final Result * COLONOSCOPY (02/16/2022 9:25 AM COMPUTER PUBLISHER) Anatomical Region Laterality Modality Other Narrative Procedure Note Blanquita Abbasi MD - 02/16/2022 9:25 AM CST [facility] Patient Name: Antoinette Lawrence Procedure Date: 02/16/2022 9:25 AM Date of : 1955 Admit Type: Outpatient Age: 66 Gender: Female Attending MD: Blanquita Abbasi M.D. Room: [facility] 1 Note Status: Finalized Patient Profile: This is a 66 year old female. Her brother had colon cancer. Colonoscopy for evaluation and screening. Procedure: Colonoscopy Indications: Screening in patient at increased risk: Familyhistory of 1st-degree relative with colorectal cancerbefore age 60 years, Last colonoscopy 5 years ago Referring MD: Cherry Poole M.D. Providers: Blanquita Abbasi M.D. Impression: - The entire examined colon is normal. - Internal hemorrhoids. - No specimens collected. Recommendation: - Repeat colonoscopy in 5 years for screeningpurposes. Medicines: Monitored Anesthesia Care Complications: No immediate complications. Estimated Blood Loss: Estimated blood loss: none. Procedure: Pre-Anesthesia Assessment: - Prior to the procedure, a History and Physicalwas performed, and patient medications and allergieswere reviewed. The patient's tolerance of previous anesthesia was also reviewed. The risks andbenefits of the procedure and the sedation options and risks were discussed with the patient. All questions were answered, and informed consent was obtained. Prior Anticoagulants: The patient has taken noanticoagulant or antiplatelet agents. ASA Grade Assessment: II -A patient with mild systemic disease. After reviewing the risks and benefits, the patient was deemed in satisfactory condition to undergo the procedure. The benefits, risks and alternatives of theprocedure and sedation were discussed and informed consentwas obtained. All questions were answered. Please referto the signed informed consent document in the medical record. The bowel preparation used was Miralax and bisacodyl tablets via split dose instruction. The scope was passed under direct vision. The Pediatric Colonoscope PCF-H190L [id number] was introducedthrough the anus and advanced to the the cecum, identifiedby appendiceal orifice and ileocecal valve. Thequality of the bowel preparation was good. Bowel prep was administered using a split dose. Findings: The perianal and digital rectal examinations were normal. The cecum appeared normal. The colon (entire examined portion) appeared normal. No polyps and no mass lesions noted. Internal hemorrhoids were found during retroflexion. The hemorrhoids were small. Electronically signed by Blanquita Abbasi M.D. Blanquita Abbasi M.D. 02/16/2022 11:21:46 AM Number of Addenda: 0 Note Initiated On: 02/16/2022 9:25 AM Procedure Code(s): --- Professional --- G0105, Colorectal cancer screening; colonoscopy on individual at high risk Diagnosis Code(s): --- Professional --- Z80.0, Family history of malignant neoplasm of digestive organs K64.8, Other hemorrhoids CPT copyright 2020 [employer]. All rights reserved. The codes documented in this report are preliminary and upon insurance coder reviewmay be revised to meet current compliance requirements. Recognized by the [employer] for promoting quality in endoscopy Blanquita Abbasi MD ENDOSCOPY PROCEDURES Final Result * Hepatitis C antibody (05/09/2021 10:34 AM COMPUTER PUBLISHER) Hep C Ab Nonreactive Nonreactive [facility] Comment: Interpretive Data Nonreactive: Antibodies to HCV not detected. Does NOT exclude the possibility of recent exposure to HCV. Equivocal: Equivocal for HCV antibodies. Supplemental molecular testing will be automatically performed to determine infection status in accordance with current CDC screening recommendations. Reactive: Positive for HCV antibodies. This may represent current or past HCV infection. Supplemental molecular testing will be automatically performed to determine current infection status in accordance with current CDC screening recommendations. Interpretive data was last revised on 2019. Blood 05/09/2021 10:3 4 AM COMPUTER PUBLISHER 05/09/2021 2:00 PM COMPUTER PUBLISHER Jr Hull NP LAB MICROBIOLOGY - GENERAL ORDER GEOVANNA Final Result [facility] [id number] [place] [address] from Last 3 Months or Most Recently Relevant to Health Maintenance Insurance [employer] MEDICARE Advance Directives For more information, please contact: [phone] * Full Code (Latest Code Status on File) Date Activated Date Inactivated Comments 02/16/2022 9:28 AM 02/16/2022 4:01 PM * Full Code Date Activated Date Inactivated Comments 02/16/2022 9:28 AM 02/16/2022 9:28 AM Care Teams Real Estate Account Executive Relationship Specialty Start Date End Date Shanita Alejandra NP [address] [facility] [address] [place] [address] PCP - General Family Medicine 04/24/24
== END 2025-03-19 07:57 | disposition home or self-care (01) ==
PROVIDERS: PCP Nurse Practitioner Family; Visit Provider Nurse Practitioner Family
DX: Z13.820 Encounter for screening for osteoporosis (principal); Z78.0 Asymptomatic menopausal state; M81.0 Age-related osteoporosis without current pathological fracture; M85.852 Other specified disorders of bone density and structure, left thigh; M85.851 Other specified disorders of bone density and structure, right thigh
CPT/HCPCS: 77080